=== PATIENT | female | born 1960 | race Caucasian/White ===

== ENCOUNTER 2018-10-05 10:32 | Inpatient (IN) ==
[2018-10-05 11:29] LABS: BASO# 0.05 X1000 (0.0-0.2); BASO% 0.3 % (0.0-0.8); EOS# 0.02 X1000 (0.0-0.7); EOS% 0.1 % (0.0-10.0); HEMATOCRIT 48.6 % (37.0-47.0); HEMOGLOBIN 15.7 g/dL (12.0-16.0); IMM GRAN# 0.04 X1000 (0.0-0.04); IMM GRAN% 0.3 % (0.0-0.5); LYMPH# 1.26 X1000 (1.2-3.4); LYMPH% 7.9 % (20.5-51.1); MCH 30.1 PG (27-31); MCHC 32.3 g/dL (33-37); MCV 93.1 FL (81-99); MONO# 0.85 X1000 (0.11-0.59); MONO% 5.3 % (1.7-9.3); MPV 12.2 FL (7.4-10.4); NEUT# 13.67 X1000 (1.4-6.5); NEUT% 86.1 % (42.2-75.2); PLT 229 X1000 (130-400); RBC 5.22 XMIL (4.2-5.4); RDW 15.4 % (11.5-14.5); WBC 15.89 X1000 (4.8-10.8)
[2018-10-05 11:58] LABS: ALB/GLOB RATIO 1.2; ALBUMIN 4.3 g/dL (3.5-5.0); CALCIUM 9.9 mg/dL (8.8-10.2); CREATININE 1.1 mg/dL (0.5-0.9); POTASSIUM 4.3 mmol/L (3.5-5.1); TOTAL BILIRUBIN 0.62 mg/dL (0.20-1.00); TOTAL PROTEIN 7.8 g/dL (6.3-8.3)
[2018-10-05] MEDS ORDERED: NS 1,000 ML IV ONE ×2 (12:45)
[2018-10-05] MEDS ORDERED: HUMULIN R IV ONE (12:45)
[2018-10-05 13:30] LABS: ALLEN TEST NO; BE -2.4 mmoll (-3.0-3.0); BLOOD TYPE ARTERIAL; HCO3-(ACT) 22.9 mmoll (20.0-26.0); METHB 1.4 % (0.0-1.5); O2(CT) 22.7 mL/dL (15.0-23.0); O2HB 93.7 % (95.0-99.0); PCO2(98.6) 30 mmHg (35-45); PO2(98.6) 106 mmHg (60-100); SAMPLE BLOOD; SAO2 98.7 % (95.0-100.0); THB 17.2 g/dL (11.5-17.4); pH(98.6) 7.44 (7.35-7.45)
[2018-10-05 13:31] LABS: MODALITY CANNULA
[2018-10-05 13:49] LABS: URINE SOURCE CLEAN CATCH
[2018-10-05 14:00] LABS: BILIRUBIN URINE NEGATIVE (NEGATIVE); BLOOD URINE NEGATIVE (NEGATIVE); COLOR YELLOW; GLUCOSE URINE >1000 mg/dL (NEGATIVE); KETONE URINE 40 mg/dL (NEGATIVE); LEUKOCYTES URINE NEGATIVE (NEGATIVE); NITRITE URINE NEGATIVE (NEGATIVE); PH URINE 5.5; PROTEIN URINE 50 mg/dL (NEGATIVE); TURBIDITY URINE CLEAR (CLEAR); UROBILINOGEN URINE NORMAL (NORMAL)
[2018-10-05 14:01] LABS: UR EPITHELIAL CELLS <10 /HPF (<10); URINE BACTERIA NEGATIVE /HPF; URINE RBC <10 /HPF (<10); URINE WBC <10 /HPF (<10)
--- NOTE | 2018-10-05 14:09 | Diag Imaging Result Doc PS360 ---
CHEST-PORTABLE - 10/05/2018 INDICATION: DKA COMPARISON: None FINDINGS: The lungs are normally expanded and clear. Heart size and mediastinal contours are normal. No pneumothorax or pleural effusion. There is a stable chest port in good position. IMPRESSION: Negative exam. Electronically signed by Parth Lorenz 10/05/2018 2:06 PM
--- NOTE | 2018-10-05 14:28 | Diag Imaging Result Doc PS360 ---
EXAM: CT ABDOMEN/PELVIS W/O CONTRAST INDICATION: flank terrie, renal insufficiency TECHNIQUE: COMPARISON: 09/26/2018 FINDINGS: There is linear scarring versus atelectasis in the right lung middle lobe. There is stable hepatic steatosis there has been a prior cholecystectomy. The spleen, pancreas, and adrenal glands are essentially unremarkable. No renal or ureteral stones are identified and there is no hydronephrosis. The pelvis is partially obscured by beam hardening artifact related to hip arthroplasty hardware. The visualized portion of the urinary bladder is grossly unremarkable. The reproductive tract is also partially obscured. The visualized portion is unremarkable. There are stable surgical changes associated with the sigmoid colon. There is a stable small hiatal hernia. The remainder of the GI tract is stable and essentially unremarkable. There are stable degenerative changes involving the spine. There is a stable prominent lipoma in the soft tissues overlying the left flank. IMPRESSION: Stable CT of the abdomen and pelvis without contrast. No renal or ureteral stones identified and no evidence of acute obstructive uropathy. Electronically signed by Tanner Nascimento 10/05/2018 2:26 PM
--- NOTE | 2018-10-05 14:28 | EKG Report ---
Test Performed on : 10/05/2018 1:31:50 PM Test Reason : sepsis Blood Pressure : / mmHG Vent. Rate : 100 BPM Atrial Rate : 100 BPM P-R Int : 156 ms QRS Dur : 076 ms QT Int : 352 ms P-R-T Axes : 080 023 022 degrees QTc Int : 454 ms Sinus rhythm. with premature atrial complexes. Septal infarct (cited on or before 21-JUL-2017) Abnormal ECG When compared with ECG of 22-JUN-2018 11:36, premature atrial complexes. are now present Unconfirmed Result
[2018-10-05] MEDS ORDERED: DUONEB (A & A) INH ONE (15:47)
[2018-10-05] MEDS ORDERED: FLAGYL 500 MG/NS 500 MG/100 ML IVPB IV ONE (15:49)
[2018-10-05] MEDS ORDERED: LEVAQUIN 750 MG/D5W 750 MG/150 ML IVPB IV ONE (15:49)
[2018-10-05] MEDS ORDERED: MORPHINE IV ONE (15:56)
[2018-10-05] MEDS ORDERED: ZOFRAN IV ONE (15:57)
--- NOTE | 2018-10-05 16:03 | PROVIDER DOCUMENTATION ---
This chart was entered by Olesya Bowles Scribe, acting as scribe for Brendon Kaur MD. HPI-Abdominal Pain/GI Problem - General Chief Complaint: Abdominal Pain Stated Complaint: abd pain, sob Time Seen by Provider: 10/05/18 13:05 Source: patient Allergies/Adverse Reactions: Patient Allergies Allergy/AdvReac Type Severity Reaction Status Date / Time No Known Drug Allergies Allergy Unknown Verified 09/26/18 11:30 Home Medications: Home Medication List Medication Instructions Recorded Confirmed Last Taken Type Amlodipine Besylate 10 mg PO DAILY 06/22/18 09/26/18 09/25/18 History Clonazepam 2 mg PO TID PRN 06/22/18 09/26/18 09/25/18 History Flecainide Acetate 50 tab PO BID 06/22/18 09/26/18 09/25/18 History Furosemide 1 tab PO BID 06/22/18 09/26/18 09/25/18 History Gabapentin 1 tab PO TID 06/22/18 09/26/18 09/25/18 History Lisinopril/Hydrochlorothiazide 1 tab PO DAILY 06/22/18 09/26/18 09/25/18 History [Lisinopril-Hctz 20-12.5 mg Tab] Metoprolol Succinate E.r. [Toprol 1 tab PO DAILY 06/22/18 09/26/18 09/25/18 History Xl] Mirtazapine 45 mg PO DAILY 06/22/18 09/26/18 09/25/18 History Mometasone/Formoterol [Dulera 200 1 puff INH BID 06/22/18 09/26/18 09/25/18 History Mcg/5 Mcg Inhaler] Montelukast Sodium [Singulair] 10 mg PO DAILY 06/22/18 09/26/18 09/25/18 History Omeprazole 40 mg PO DAILY 06/22/18 09/26/18 09/25/18 History Ondansetron [Zofran] 4 mg PO Q6H PRN PRN 06/22/18 09/26/18 09/25/18 History Sitagliptin Phosphate [Januvia] 1 tab PO DAILY 06/22/18 09/26/18 09/25/18 History Umeclidinium [place] [Incruse 1 puff INH DAILY 06/22/18 09/26/18 09/25/18 History Ellipta] Lansoprazole [Prevacid] 30 mg PO DAILY #30 capsule. 09/26/18 Unknown Rx Ondansetron [Zofran Odt] 8 mg PO BID PRN #6 tab.rapdis 09/26/18 Unknown Rx - History of Present Illness-ABD Nature of Presenting Problems: Patient is a 58 year old female who presents to the ED with suprapubic abdominal pain. Patient states diarrhea. Patient states symptoms have been present for 1.5 weeks. Patient denies nausea and vomiting. Patient states she is a diabetic but has not been taking her insulin because the insulin makes her itch. Abdominal Pain Onset Location: reports: suprapubic Pain Radiation: reports: no radiation Quality of Pain: reports: aching Severity in ED: reports: mild Onset/Duration: reports: other (1.5 weeks) Timing: reports: still present Activities at Onset: reports: light activity Modifying Factors: improves with: nothing Associated Symptoms: reports: diarrhea Bruising or Bleeding Gums?: No Similar Symptoms Previously?: Yes (present for 1.5 weeks) Recently seen or treated by another doctor?: No Review of Systems - Adult - REVIEW OF SYSTEMS - ADULT Constitutional: reports: no symptoms reported Eyes: reports: no symptoms reported Ears, Nose, Mouth & Throat: reports: no symptoms reported Cardiovascular: reports: no symptoms reported Respiratory: reports: no symptoms reported Gastrointestinal: reports: abdominal pain (suprapubic), diarrhea. denies: nausea, vomiting Genitourinary: reports: no symptoms reported Musculoskeletal: reports: no symptoms reported Integumentary: reports: no symptoms reported Neurological: reports: no symptoms reported Psychiatric: reports: no symptoms reported Endocrine: reports: no symptoms reported Hematologic/Lymphatic: reports: no symptoms reported Allergic/Immunologic: reports: no symptoms reported All Other Systems: Reviewed and Negative Past History - Adult - PAST MEDICAL HISTORY-ADULT Review of Records: reports: Nursing Assessment Review, Medications Reviewed, Social history reviewed & non-contributory. Major Childhood Illnesses: reports: denies history Cardiovascular: reports: A-Fib, arrhythmia, CHF, HTN, hyperlipidemia Respiratory: reports: COPD Gastrointestinal: reports: GERD Obstetrical/Gynecological: reports: denies history Genitourinary: reports: denies history Musculoskeletal: reports: denies history Neurological: reports: denies history Psychiatric: reports: bipolar, depression Endocrine/Immune: reports: Diabetes Other Conditions: reports: denies history - PRIOR SURGERIES/PROCEDURES Surgical/Procedure History: reports: cholecystectomy, , indwelling device (port a cath), joint replacement (bilateral total hip), back/neck - IMMUNIZATION STATUS Childhood Immunizations: See Nurse Assessment Flu Vaccine: See Nurse Assessment - FAMILY HISTORY Family History: reviewed, not pertinent - SOCIAL HISTORY Smoking: cigarettes, less than 1 pack/day Provider spent 3-5 mins advising pt. on dangers of tobacco.: Discussed manners to quit use, and f/u contacts for add'l counseling. Substance Use: alcohol Alcohol Use Frequency: occasionally Living Situation: friend Physical Exam-General - PHYSICAL EXAM-ADULT Initial Vital Signs Reviewed: Yes - CONSTITUTIONAL General Appearance: alert, mild distress, other (ill in appearance) - HEAD, EARS, NOSE, MOUTH & THROAT HENMT: other (dry mucous membranes) - RESPIRATORY Respiratory: increased rate, other (port to right side chest) - CARDIOVASCULAR Cardiovascular: normal peripheral pulses, tachycardia - GASTROINTESTINAL (ABDOMEN) Abdominal Exam: abnormal bowel sounds (hyper active), distended, other (large well healed mid line scar) - MUSCULOSKELETAL Back Exam: normal inspection Extremity: non-tender, normal inspection - SKIN Integumentary: normal color, normal turgor, warm/dry - NEUROLOGIC Neurologic: grossly normal - PSYCHIATRIC Psych/Mental Status: normal mood/affect, oriented x 3 Progress - PLAN OF CARE/RESULTS Progress/Plan/Lab Results: Vital Signs - 8 hr 10/05/18 11:05 Temperature 97.9 F Pulse Rate 102 H Respiratory Rate 20 Blood Pressure 166/76 O2 Sat by Pulse Oximetry 96 Laboratory Results - last 24 hr 10/05/18 10/05/18 11:06 11:06 WBC 15.89 H RBC 5.22 Hgb 15.7 Hct 48.6 H MCV 93.1 MCH 30.1 MCHC 32.3 L RDW Std Deviation 15.4 H Plt Count 229 MPV 12.2 H Immature Gran % (Auto) 0.3 Neut % (Auto) 86.1 H Lymph % (Auto) 7.9 L [place] % (Auto) 5.3 Eos % (Auto) 0.1 Baso % (Auto) 0.3 Immature Gran # (Auto) 0.04 Neut # (Auto) 13.67 H Lymph # (Auto) 1.26 [place] # (Auto) 0.85 H Eos # (Auto) 0.02 Baso # (Auto) 0.05 Sodium 133 L Potassium 4.3 Chloride 94 L Carbon Dioxide 17 L Anion Gap 22 BUN 15 Creatinine 1.1 H Estimated GFR/1.73 m2 51 BUN/Creatinine Ratio 14 Glucose 460 H* Calculated Osmolality 287 Calcium 9.9 Total Bilirubin 0.62 AST 17 ALT 22 Alkaline Phosphatase 140 H Total Protein 7.8 Albumin 4.3 Globulin 3.5 Albumin/Globulin Ratio 1.2 Amylase 26 Lipase 23 Orders Category Date Time Status Sparks Cath Insertion ORDERED Care 10/05/18 12:44 Active Nursing- Obtain EKG once Care 10/05/18 12:44 Active OK to use Port-A-Cath ORDERED Care 10/05/18 12:43 Active Saline Loc DIRECTED Care 10/05/18 11:10 Active CHEST-PORTABLE [RAD] Stat Exams 10/05/18 12:[address] HEAD W/O CONTRAST [CT] Stat Exams 10/05/18 12:46 Ordered ABG [RESP] Routine Lab 10/05/18 12:43 Ordered ACETONE SERUM [CHEM] Stat Lab 10/05/18 12:44 Uncollected AMYLASE [CHEM] Stat Lab 10/05/18 11:06 Completed BLOOD CULTURE [BLDCUL] Stat Lab 10/05/18 12:43 Ordered C DIFF TOXIN [STOOL] Stat Lab 10/05/18 12:43 Uncollected CBC WITH ELECTRONIC DIFF [HEME] Stat Lab 10/05/18 11:06 Completed COMPREHENSIVE METABOLIC PANEL [CHEM] Stat Lab 10/05/18 11:06 Completed LACTATE, PLASMA [CHEM] Stat Lab 10/05/18 12:43 Uncollected LIPASE [CHEM] Stat Lab 10/05/18 11:06 Completed OCCULT BLOOD SCREENING [STOOL] Stat Lab 10/05/18 12:43 Uncollected TROPONIN T Stat Lab 10/05/18 12:44 Uncollected URINALYSIS W/POSS RFLX CULT [URINALYSIS] Stat Lab 10/05/18 11:10 Uncollected 0.9% Sodium Chloride Inj [Ns] 1,000 ml Med 10/05/18 12:45 Active IV 999 mls/hr 0.9% Sodium Chloride Inj [Ns] 1,000 ml Med 10/05/18 12:45 Active IV 999 mls/hr Insulin Human Regular [Humulin R] Med 10/05/18 12:45 Discontinued 10 unit IV NOW ONE EKG [EKG] Stat Ther 10/05/18 12:44 Ordered Result Diagrams: 10/05/18 11:06 10/05/18 11:06 - REASSESSMENT Reassessment #1 Time Reassessed: 15:59 Status: unchanged (Given IV flagyl and levaquin for possible C. Diff. Given IVF and morphine/zofran for pain. Given duoneb x 3 for COPD and IV insulin for type 2 DM) - EKG 1 Time of EKG reading by physician:: 13:31 EKG Read and Signed by:: Brendon Kaur EKG Interpretation (*Must complete 3 of following elements*): Abnormal Rate: 100 Rhythm: sinus rhythm with premature atrial complexes [place]: normal CT Interval: normal Comments: septal infarct, age undetermined - XRAY 1 XRAY Study: Chest Impression: See EMR Report ( CHEST-PORTABLE - 10/05/2018 INDICATION: DKA COMPARISON: None FINDINGS: The lungs are normally expanded and clear. Heart size and mediastinal contours are normal. No pneumothorax or pleural effusion. There is a stable chest port in good position. IMPRESSION: Negative exam. Electronically signed by Parth Lorenz 10/05/2018 2:06 PM 10/05/18 1406 Interpreting Physician: Parth Lorenz MD Dictated Date/Time: 10/05/18 1405 cc: Brendon Kaur MD; None,PCP) - CT/MRI 1 CT Study: Abdomen, Pelvis Impression: See EMR Report (EXAM: CT ABDOMEN/PELVIS W/O CONTRAST INDICATION: flank terrie, renal insufficiency TECHNIQUE: COMPARISON: 09/26/2018 FINDINGS : There is linear scarring versus atelectasis in the right lung middle lobe. There is stable hepatic steatosis there has been a prior cholecystectomy. The spleen, pancreas, and adrenal glands are essentially unremarkable. No renal or ureteral stones are identified and there is no hydronephrosis. The pelvis is partially obscured by beam hardening artifact related to hip arthroplasty hardware. The visualized portion of the urinary bladder is grossly unremarkable. The reproductive tract is also partially obscured. The visualized portion is unremarkable. There are stable surgical changes associated with the sigmoid colon. There is a stable small hiatal hernia. The remainder of the GI tract is stable and essentially unremarkable. There are stable degenerative changes involving the spine. There is a stable prominent lipoma in the soft tissues overlying the left flank. IMPRESSION: Stable CT of the abdomen and pelvis without contrast. No renal or ureteral stones identified and no evidence of acute obstructive uropathy. Electronically signed by Tanner Nascimento 10/05/2018 2:26 PM 10/05/18 1426 Interpreting Physician: Tanner Nascimento MD Dictated Date/Time: 10/05/18 1419 cc: Brendon Kaur MD; None,PCP) - CONSULTS/PCP/HOSPITALIST Notification #1 *Consult/PCP/Hospitalist*: mD Joshua Time Discussed: 16:00 Consult Disposition: Will see in ED Departure - Departure Date of Disposition Decision: 10/05/18 Time of Disposition Decision: 16:00 DIAGNOSIS: COPD with exacerbation, Type 2 diabetes mellitus with hyperglycemia, with long- term current use of insulin, Enteritis, Tobacco use disorder Disposition: ADMITTED INPATIENT 09 Certified Medical Emergency: Emergent Condition: Fair Referrals and Follow-Ups: None,PCP [Primary Care Provider] - - Critical Care Note This patient required my direct & personal management of CC.: No Attestation - Physician/ KELY Attestation Patient care was provided by Advanced Practice Provider:: No The physician spent face to face time with patient:: Yes Advanced Practice Provider documentation review:: Supervising physician onsite and consulted in the evaluation and care of this patient. The physician did have a face to face encounter with the patient. This chart was documented by the indicated scribe, (Olesya Bowles Scribe) and accurately reflects the services I performed and decisions made by me, Brendon Kaur MD, as attested by the provider's signature.
[2018-10-05] MEDS ORDERED: LOVENOX SUBQ SCH (16:56)
[2018-10-05] MEDS ORDERED: DUONEB (A & A) INH PRN (16:56)
[2018-10-05] MEDS: NS 1,000 ML IV SCH (18:34)
--- NOTE | 2018-10-05 18:38 | HISTORY AND PHYSICAL ---
CHIEF COMPLAINT: Chronic abdominal pain and diarrhea. HISTORY OF PRESENT ILLNESS: The patient with numerous comorbidities including COPD with chronic hypoxic respiratory failure on 2 L at home, CKD 3, diabetes mellitus, noncompliance, paroxysmal atrial fibrillation, hypertension, tobacco abuse, GERD, and psychiatric issues. She presents complaining of lower abdominal pain and diarrhea. She states that these have been going on since shortly after her previous discharge. When patient asked why she came in today, she repeatedly says that "I am just tired of being sick." She had not noted anything that makes her symptoms better or worse. Her pain is primarily bilateral lower abdomen. It is crampy. She has not noted any fever or chills at home. Her breathing is essentially baseline. She no longer smokes cigarettes but continues to vape. She stopped her insulin quite sometime ago but is vague about exactly how long ago. When asked why she quit, she says that giving herself shots makes her itch. On evaluation in the ED, she was minimally tachycardic, hyperglycemic, with a bit of leukocytosis, hyperglycemia, and mild dehydration. Suspect viral gastroenteritis versus gastroparesis with dumping syndrome. Less likely Clostridium difficile. We will obtain stool studies to rule out serious infection. We will hydrate aggressively and treat her hyperglycemia. We will observe overnight, but if Clostridium difficile is negative could likely go home tomorrow and follow up with her PCP for her chronic issues. REVIEW OF SYSTEMS: Twelve-point review of systems negative except as per HPI. ALLERGIES: No known drug allergies. PAST MEDICAL HISTORY: COPD, chronic hypoxic respiratory failure, CKD 3, diabetes mellitus, atrial fibrillation, hypertension, tobacco abuse, GERD, and chronic abdominal pain. PAST SURGICAL HISTORY: Hip surgery, spine surgery, port placement, shoulder surgery, , cholecystectomy. SOCIAL HISTORY: Patient is a former cigarette smoker, now vaping. Denies alcohol or illicit drug use although there has been some question in the record of these in the past. FAMILY HISTORY: Father in his 40s from infection and gangrene. Mother alive with history of Parkinson. LABORATORY DATA: WBC 15.8, hemoglobin 15.7, hematocrit 48.6, platelets 229. ABG with pH 744, pCO2 of 30, PO2 of 106, O2 saturations 98% on 2 L by nasal cannula. Sodium 133, potassium 4.3, bicarb 17, BUN 15, creatinine 1.1, glucose 460, AST 17, ALT 22, alkaline phosphatase 140, troponin negative. Total protein 7.8, albumin 4.3, lactate 1.5. Urinalysis with mild proteinuria, marked glucosuria, otherwise negative. Serum acetone negative. IMAGING: Chest x-ray negative. CT abdomen and pelvis with no acute process. PHYSICAL EXAMINATION: VITAL SIGNS: T-max 97.9 degrees, pulse 102, respirations 25, O2 saturations 99% on 2 L by nasal cannula. GENERAL: No acute distress. HEENT: Dry mucous membranes. No cervical adenopathy. Normocephalic, atraumatic. CARDIOVASCULAR: Slightly irregular, minimally tachycardic. No murmurs noted. PULMONARY: Slightly decreased air entry throughout, but no wheezing. No increased work of breathing. No accessory muscle use. ABDOMEN: Soft. No tenderness, guarding, or rebound tenderness noted. Bowel sounds positive. Nondistended. EXTREMITIES: Peripheral pulses decreased but present. No clubbing or cyanosis. NEUROLOGIC: Cranial nerves 2 through 12 grossly intact. No focal deficits identified. PSYCHIATRIC: Odd effect. Awake, alert, and oriented x3. SKIN: No new rashes or lesions identified. ASSESSMENT AND PLAN: 1. Mild dehydration, viral gastroenteritis versus gastroparesis and dumping syndrome: We will obtain stool studies to rule out Clostridium difficile. Given Flagyl in ER which will continue until Clostridium difficile is ruled out. Given the benign abdominal exam, lack of fever, lack of diarrhea noted since arrival, and chronicity of symptoms, suspicion for Clostridium difficile relatively low. We will give IV fluids and symptomatic treatment. Given the likelihood of gastroparesis, we will keep narcotics to a minimum. CT abdomen completely benign. Lab work largely unremarkable aside from leukocytosis as above. 2. Chronic obstructive pulmonary disease with chronic hypoxic respiratory failure. Patient is saturating well on her home 2 L. ABG with no increase in CO2. No wheezing on exam. We will give DuoNebs p.r.n. and continue her home medications. No signs of exacerbation at this time. 3. Chronic kidney disease 3. Creatinine 1.1, which is baseline. We will hydrate as above and monitor. 4. Diabetes mellitus with hyperglycemia. Patient noncompliant with home insulin. Sugar [address] on admission. We will place on sliding scale insulin and monitor. The importance of compliance stressed to patient. 5. Atrial fibrillation. The patient had irregular but rate control on admission. Initial pulse rate 102, repeat 63. We will continue home medications. 6. Hypertension. We will hold home diuretics in the setting of dehydration but likely restart in the morning if blood pressure is elevated. 7. Tobacco abuse. Patient educated on cessation. No longer smoking cigarettes, but still smoking vape. 8. Gastroesophageal reflux disease. Continue PPI. 9. Psychiatric: We will continue patient's home psychiatric medications. 10. Deep vein thrombosis prophylaxis. Lovenox. 11. Disposition. We will observe overnight, but if Clostridium difficile is negative then patient can likely be discharged to follow up with her PCP to discuss her chronic abdominal pain and diarrhea. May consider Rosal[place].
[2018-10-05] MEDS: TAMBOCOR PO SCH (22:02)
[2018-10-05] MEDS: KLONOPIN PO PRN (22:03)
[2018-10-05] MEDS: NORCO-7.5 PO PRN (22:03)
[2018-10-05] MEDS: HUMALOG SUBQ SCH (22:10)
[2018-10-05] MEDS: DULERA 200 MCG/5 MCG INHALER INH SCH (22:57)
[2018-10-06] MEDS: FLAGYL PO SCH ×3 (01:28→16:53)
[2018-10-06] MEDS: NS 1,000 ML IV SCH ×3 (04:50→15:48)
[2018-10-06] MEDS: HUMALOG SUBQ SCH ×4 (06:09→22:16)
[2018-10-06] MEDS: PRILOSEC PO SCH (06:10)
--- NOTE | 2018-10-06 06:48 | Diag Imaging Result Doc PS360 ---
EXAM: CHEST-PORTABLE HISTORY: cough TECHNIQUE: Portable chest single view COMPARISON: 10/05/2018 FINDINGS: The lungs are well expanded. The heart is not enlarged. The vessels are not distended. No change in the right jugular portacatheter. No pneumothorax. There are no infiltrates. No effusion identified. IMPRESSION: Stable chest. Electronically signed by Brooks Gallo 10/06/2018 6:46 AM
[2018-10-06 07:53] LABS: BASO# 0.03 X1000 (0.0-0.2); BASO% 0.3 % (0.0-0.8); EOS# 0.08 X1000 (0.0-0.7); EOS% 0.7 % (0.0-10.0); HEMATOCRIT 40.5 % (37.0-47.0); HEMOGLOBIN 12.9 g/dL (12.0-16.0); IMM GRAN# 0.02 X1000 (0.0-0.04); IMM GRAN% 0.2 % (0.0-0.5); LYMPH# 1.32 X1000 (1.2-3.4); LYMPH% 12.3 % (20.5-51.1); MCH 30.2 PG (27-31); MCHC 31.9 g/dL (33-37); MCV 94.8 FL (81-99); MONO# 0.75 X1000 (0.11-0.59); MPV 12.3 FL (7.4-10.4); NEUT# 8.53 X1000 (1.4-6.5); NEUT% 79.5 % (42.2-75.2); PLT 186 X1000 (130-400); RBC 4.27 XMIL (4.2-5.4); RDW 15.1 % (11.5-14.5); WBC 10.73 X1000 (4.8-10.8)
[2018-10-06] MEDS: NORCO-7.5 PO PRN ×3 (08:11→23:27)
[2018-10-06] MEDS: SINGULAIR PO SCH (08:11)
[2018-10-06 08:12] LABS: AGAP 15; BUN 9 mg/dL (8-22); CALCIUM 8.1 mg/dL (8.8-10.2); CHLORIDE 105 mmol/L (98-107); COSMO 285; CREATININE 0.7 mg/dL (0.5-0.9); ESTIMATED GFR > 60; GLUCOSE 223 mg/dL (70-104); POTASSIUM 3.4 mmol/L (3.5-5.1); SODIUM 140 mmol/L (136-145); TCO2 20 mmol/L (25-35)
[2018-10-06] MEDS: ZOFRAN IV PRN ×2 (08:13→15:10)
[2018-10-06] MEDS: REMERON PO SCH (08:15)
[2018-10-06] MEDS: TOPROL XL PO SCH (08:25)
[2018-10-06] MEDS: TAMBOCOR PO SCH ×2 (08:27→22:15)
[2018-10-06] MEDS: DULERA 200 MCG/5 MCG INHALER INH SCH (09:44)
--- NOTE | 2018-10-06 13:50 | PROGRESS NOTE ---
DATE: 10/06/2018 SUBJECTIVE: The patient is resting comfortably in bed. She is not in any obvious distress. OBJECTIVE: Vital signs: Temperature 97.7 degrees, pulse is 89, respiratory rate 18, blood pressure is 142/70, oxygen saturation is 97%. HEENT: Atraumatic, normocephalic. Cardiovascular: S1, S2. Respiratory: Has evidence of good entry bilaterally. Abdomen: Soft, nontender. No masses felt. Extremities: No evidence of edema. Central nervous system: No obvious focal deficit noted. LABS: WBC is 10.73, hematocrit is 40.5 with a platelet count of 186,000. Sodium is 140, potassium 3.4, chloride is 105, bicarb 20, BUN is 9, creatinine 0.7. ASSESSMENT AND PLAN: 1. Probable gastroenteritis. Plan will be to treat the patient symptomatically. Maintain patient on intravenous fluids and continue to follow up on patient's clinical progression. 2. Chronic obstructive pulmonary disease. Maintain patient on nebulized bronchodilators as needed. 3. Chronic kidney disease. Continue intravenous hydration. Follow up on renal function. Avoid nephrotoxic agent. 4. Diabetes mellitus. Continue blood sugar monitor as well as Lantus. Check a hemoglobin A1c level. 5. Atrial fibrillation. Heart rate is controlled. Continue flecainide as well as metoprolol. 6. Hypertension. Continue current antihypertensive regimen. 7. Tobacco use history. We recommend nicotine patch at this time. 8. Gastroesophageal reflux disease. Continue proton pump inhibitor. 9. Deep vein thrombosis prophylaxis. Will recommend placing patient on sequential compression devices. cc: Rey Hawley MD
[2018-10-06 14:01] LABS: HEMOGLOBIN A1C 9.8 % (4.8-6.0)
[2018-10-06] MEDS ORDERED: NICODERM PATCH TD PRN (14:02)
[2018-10-06] MEDS: KLONOPIN PO PRN ×2 (17:12→22:13)
[2018-10-06] MEDS ORDERED: TUSSIONEX LIQUID PO ONE (22:56)
[2018-10-07] MEDS: NORCO-7.5 PO PRN ×2 (04:43→08:52)
[2018-10-07] MEDS: NS 1,000 ML IV SCH (05:44)
[2018-10-07] MEDS: PRILOSEC PO SCH (06:27)
[2018-10-07] MEDS: FLAGYL PO SCH (06:27)
[2018-10-07 08:08] VITALS: BP 174/80
[2018-10-07] MEDS: DULERA 200 MCG/5 MCG INHALER INH SCH (08:28)
[2018-10-07] MEDS: HUMALOG SUBQ SCH (08:48)
[2018-10-07] MEDS: ZOFRAN IV PRN (08:49)
[2018-10-07] MEDS: REMERON PO SCH (08:49)
[2018-10-07] MEDS: KLONOPIN PO PRN (08:51)
[2018-10-07] MEDS: SINGULAIR PO SCH (08:51)
[2018-10-07] MEDS: TAMBOCOR PO SCH (08:54)
[2018-10-07] MEDS: TOPROL XL PO SCH (08:54)
[2018-10-07] MEDS ORDERED: KLOR-CON PO SCH (09:00)
--- NOTE | 2018-10-08 05:45 | DISCHARGE SUMMARY ---
ADMISSION DATE: 10/05/2018 DISCHARGE DATE: 10/07/2018 IMAGING: Initial chest x-ray with no acute process. CT abdomen and pelvis with no acute process. Repeat chest x-ray with no acute process. LABORATORY: Initial WBC 15.8, repeat 10.7. ABG with pH 7.4, pCO2 30, PO2 106 on 2 L by nasal cannula in which the patient reported taking at home. This shows sodium 133, repeat 140, and potassium 4.3. Initial creatinine 1.1. Repeat creatinine of 0.7. Initial glucose 460. Troponin negative. Urinalysis unremarkable aside from glucose and slight proteinuria. Acetone was negative. Hemoglobin A1C 9.8. DISCHARGE DIAGNOSES: 1. Likely viral gastroenteritis. 2. Possible gastroparesis. 3. COPD. 4. RENEE versus CKD 5. Diabetes mellitus. 6. Atrial fibrillation. 7. Hypertension. 8. Tobacco abuse. 9. GERD. 10. Medication noncompliance. HOSPITAL COURSE: The patient presented initially with complaints of largely acute on chronic diarrhea and lower abdominal pain. He states that it has been going on for at least a month, but has been worse over the last day or 2 prior to admission. She did endorse some early satiety and nausea but no vomiting. Denied any sick contacts. She had stopped taking her insulin when asked when I stated that giving herself shots made her itch. Initial workup in the ER was largely unremarkable. She did have a little bit of white count but no fever. Imaging of the chest and abdomen were unremarkable. She did have pretty significant hyperglycemia, but no evidence of DKA. Her creatinine was mildly elevated, which was felt to be chronic but did improve overnight with the IV fluids from 1.1 to 0.7. Stool studies were negative for C. Difficile. The patient was treated symptomatically with IV fluids, insulin and nausea control. She improved spontaneously over the course of her hospitalization. She is still having some mild nausea on discharge, but her occasional loose stools after eating, but was tolerating diet well and felt this was back to her baseline. I suspect the patient has undiagnosed gastroparesis, and recommend she follow up with GI for further evaluation. DISCHARGE VITALS: Temperature 97.5 degrees, heart rate 87, respirations 18, blood pressure 134/67, 02 sats 97 percent on room air. DISCHARGE EXAMINATION: General: No distress. Vitals: As above. HEENT: Normocephalic, atraumatic. Moist mucous membranes. No cervical adenopathy. Cardiovascular: Irregular but normal rhythm. No murmurs noted. Pulmonary: Slightly decreased air entry throughout, but otherwise clear to auscultation. No increased work up breathing. No accessory muscle use. No rales or rhonchi or wheezing. Abdomen: Soft, nontender. Nondistended. Bowel sounds positive. Extremities: Peripheral pulses are decreased but present. No clubbing or cyanosis. Neurologic: Cranial nerves grossly intact. No focal deficits identified. Psychiatric: Normal mood and affect. Awake, alert and oriented x3. Skin: No new rashes or lesions identified. DISCHARGE DIET: Diabetic diet. DISCHARGE MEDICATIONS: 1. Norvasc 10 mg p.o. daily. 2. Clonazepam 2 mg p.o. t.i.d. p.r.n. as at home. 3. Flecainide 50 mg p.o. b.i.d. 4. Lisinopril/hydrochlorothiazide 20 - 12.5 daily. 5. Toprol-XL 25 mg 1 tab p.o. daily. 6. Mirtazapine 45 mg p.o. daily. 7. Dulera 1 puff inhaled b.i.d. 8. Singulair 10 mg p.o. daily. 9. Omeprazole 40 mg p.o. every day. 10. Januvia 100 mg p.o. daily. 11. [*] Ellipta 1 puff inhaled daily. 12. Gabapentin 800 mg p.o. t.i.d. 13. Prevacid 30 mg p.o. daily. 14. Metformin 500 p.o. b.i.d. 15. Zofran 4 mg tablet q.6 hours p.r.n. 16. [*]30 mL p.o. daily. 17. Phenergan suppository 25 mg per rectum q.6 hours p.r.n. if Zofran ineffective. FOLLOWUP AND PLAN: The patient is to discharge home to follow up with PCP and GI for further discussion of her chronic nausea and intermittent diarrhea. Further evaluation for possible gastroparesis. Advised patient to take 2 smaller more frequent meals. Medications given to help control symptoms. Advised the patient on the importance of compliance.
== END 2018-10-07 13:57 | disposition home health service (06) | DRG 683 ==
LOC: EDIPHOLD 10:32 → ED 10:32 → SUATTDRO 17:42 → OBSVTOIN 17:42 → 3N 18:41
PROVIDERS: ATTEND Internal Medicine
CPT/HCPCS: 51702; 71010; 71045; 74176; 80048; 80053; 81001; 82009; 82150; 82270; 82805; 82948; 83036; 83605; 83690; 84484; 85025; 87040; 87324; 93005; 94640; 94760; 94761; 96365; 96372; 96375; 99285; A9270; J1650; J1815; J1956; J2270; J2405; J7030; S0030; XXXXX

== ENCOUNTER 2018-11-14 18:27 | Inpatient (IN) ==
[2018-11-14] MEDS ORDERED: NS 1,000 ML IV ONE (19:25)
[2018-11-14] MEDS ORDERED: MORPHINE IV ONE (19:25)
[2018-11-14] MEDS ORDERED: ZOFRAN IV ONE (19:25)
[2018-11-14 20:32] LABS: BASO# 0.06 X1000 (0.0-0.2); BASO% 0.6 % (0.0-0.8); EOS# 0.05 X1000 (0.0-0.7); EOS% 0.5 % (0.0-10.0); HEMOGLOBIN 14.6 g/dL (12.0-16.0); IMM GRAN# 0.02 X1000 (0.0-0.04); IMM GRAN% 0.2 % (0.0-0.5); LYMPH# 2.02 X1000 (1.2-3.4); LYMPH% 20.3 % (20.5-51.1); MCHC 32.4 g/dL (33-37); MCV 92.4 FL (81-99); MONO# 0.89 X1000 (0.11-0.59); MONO% 8.9 % (1.7-9.3); MPV 10.9 FL (7.4-10.4); NEUT# 6.92 X1000 (1.4-6.5); NEUT% 69.5 % (42.2-75.2); PLT 262 X1000 (130-400); RBC 4.87 XMIL (4.2-5.4); RDW 15.7 % (11.5-14.5); WBC 9.96 X1000 (4.8-10.8)
[2018-11-14 20:39] LABS: INR 0.89; PROTIME 12.8 Seconds (11.0-16.0)
[2018-11-14 20:40] LABS: PTT 25.9 Seconds (22.3-41.8)
[2018-11-14 21:01] LABS: AGAP 15; ALB/GLOB RATIO 1.3; ALBUMIN 4.1 g/dL (3.5-5.0); ALKALINE PHOSPHATASE 120 U/L (32-104); BUN 9 mg/dL (8-22); CHLORIDE 99 mmol/L (98-107); COSMO 277; CREATININE 0.9 mg/dL (0.5-0.9); ESTIMATED GFR > 60; GLUCOSE 187 mg/dL (70-104); GOT 17 U/L (10-30); GPT 14 U/L (10-36); LIPASE 21 U/L (13-60); MAGNESIUM 1.5 mg/dL (1.5-2.7); POTASSIUM 4.2 mmol/L (3.5-5.1); SODIUM 137 mmol/L (136-145); TCO2 23 mmol/L (25-35); TOTAL PROTEIN 7.2 g/dL (6.3-8.3)
--- NOTE | 2018-11-14 21:46 | Diag Imaging Result Doc PS360 ---
EXAM: CT ABD/PELVIS W/IV CONT ONLY INDICATION: abdominal pain TECHNIQUE: This exam was performed using automated exposure control, adjustment of mA or kV according to patient size, and/or use of iterative reconstruction technique. COMPARISON: 10/05/2018 FINDINGS: There has been a prior cholecystectomy. The liver is somewhat prominent and there is mild diffuse hepatic steatosis. The the spleen, pancreas, and adrenal glands are unremarkable. There is a small left renal cyst. The kidneys are essentially unremarkable, otherwise. The pelvis is partially obscured from beam hardening artifact related to bilateral hip arthroplasty. The visualized portion of the urinary bladder is unremarkable. The reproductive tract is unremarkable as imaged. The appendix is normal. There is a staple line associated with the distal sigmoid colon. There is very mild diverticulosis coli with no evidence of diverticulitis. There are a few loops of the proximal jejunum that are mild to moderately distended with air-fluid levels. It is nonspecific. There is nothing that would necessarily indicate obstruction. This probably represents mild ileus. The remainder of the GI tract is grossly unremarkable. No free abdominal gas, free fluid, or focal inflammatory changes are appreciated. There is degenerative arthropathy throughout the spine. There is moderate aortoiliac atherosclerotic calcification. IMPRESSION: 1.A few mild to moderately distended loops of the proximal jejunum that is nonspecific but probably represents ileus, which can be due to mild enteritis. 2.Hepatic steatosis. 3.Other incidental/nonacute findings detailed above. Electronically signed by Tanenr Nascimento 11/14/2018 9:44 PM
[2018-11-14 22:09] LABS: URINE SOURCE CLEAN CATCH
[2018-11-14 22:17] LABS: BILIRUBIN URINE NEGATIVE (NEGATIVE); BLOOD URINE NEGATIVE (NEGATIVE); COLOR YELLOW; GLUCOSE URINE NEGATIVE (NEGATIVE); KETONE URINE 10 mg/dL (NEGATIVE); LEUKOCYTES URINE TRACE (NEGATIVE); NITRITE URINE NEGATIVE (NEGATIVE); PH URINE 6.5; PROTEIN URINE 30 mg/dL (NEGATIVE); SP GRAVITY URINE 1.033; TURBIDITY URINE CLEAR (CLEAR); UR EPITHELIAL CELLS <10 /HPF (<10); URINE BACTERIA NEGATIVE /HPF; URINE RBC <10 /HPF (<10); URINE WBC <10 /HPF (<10); UROBILINOGEN URINE NORMAL (NORMAL)
[2018-11-15] MEDS ORDERED: COMPAZINE IV ONE (01:24)
[2018-11-15] MEDS ORDERED: G.I. COCKTAIL PO ONE (01:25)
--- NOTE | 2018-11-15 01:35 | PROVIDER DOCUMENTATION ---
This chart was entered by Renu Tracey Scribe, acting as scribe for Alex Tena MD. HPI-Abdominal Pain/GI Problem - General Chief Complaint: Abdominal Pain Stated Complaint: abd pain Time Seen by Provider: 11/14/18 18:48 Source: patient Allergies/Adverse Reactions: Patient Allergies Allergy/AdvReac Type Severity Reaction Status Date / Time No Known Drug Allergies Allergy Unknown Verified 09/26/18 11:30 Home Medications: Home Medication List Medication Instructions Recorded Confirmed Last Taken Type Amlodipine Besylate 10 mg PO DAILY 06/22/18 09/26/18 09/25/18 History Clonazepam 2 mg PO TID PRN 06/22/18 09/26/18 09/25/18 History Flecainide Acetate 50 tab PO BID 06/22/18 09/26/18 09/25/18 History Lisinopril/Hydrochlorothiazide 1 tab PO DAILY 06/22/18 09/26/18 09/25/18 History [Lisinopril-Hctz 20-12.5 mg Tab] Metoprolol Succinate E.r. [Toprol 1 tab PO DAILY 06/22/18 09/26/18 09/25/18 History Xl] Mirtazapine 45 mg PO DAILY 06/22/18 09/26/18 09/25/18 History Mometasone/Formoterol [Dulera 200 1 puff INH BID 06/22/18 09/26/18 09/25/18 History Mcg/5 Mcg Inhaler] Montelukast Sodium [Singulair] 10 mg PO DAILY 06/22/18 09/26/18 09/25/18 History Omeprazole 40 mg PO DAILY 06/22/18 09/26/18 09/25/18 History Sitagliptin Phosphate [Januvia] 1 tab PO DAILY 06/22/18 09/26/18 09/25/18 History Umeclidinium [place] [Incruse 1 puff INH DAILY 06/22/18 09/26/18 09/25/18 History Ellipta] Lansoprazole [Prevacid] 30 mg PO DAILY #30 capsule. 09/26/18 Unknown Rx Gabapentin 1 tab PO TID #90 tab 10/07/18 Unknown Rx Metformin [Glucophage] 500 mg PO BID CC #60 tab 02/02/19 Unknown Rx Ondansetron [Zofran] 4 mg PO Q6H PRN PRN #30 tab 10/07/18 Unknown Rx Pioglitazone HCl [Actos] 30 mg PO DAILY #30 tab 10/07/18 Unknown Rx Promethazine [Phenergan] 25 mg [place] Q6H PRN PRN #21 supp 10/07/18 Unknown Rx - History of Present Illness-ABD Nature of Presenting Problems: pt is a 58 yr old female presenting with complaint of abdominal pain onset last night, pt admits nausea and diarrhea, no fever or vomiting, pt hx of multiple abdominal surgeries, no other complaints Abdominal Pain Onset Location: reports: generalized abdomen Pain Radiation: reports: no radiation Quality of Pain: reports: aching, cramping Severity in ED: reports: moderate Onset/Duration: reports: last night Timing: reports: still present Activities at Onset: reports: light activity Exposure to sick contacts?: No Modifying Factors: improves with: nothing Associated Symptoms: reports: diarrhea, nausea. denies: constipation, fever/chills, genitourinary problems, vomiting Last BM: this evening Dark Stools Present?: reports: none noticed Rectal Pain: reports: none Emesis Description: reports: none Bruising or Bleeding Gums?: No Similar Symptoms Previously?: Yes Recently seen or treated by another doctor?: Yes Review of Systems - Adult - REVIEW OF SYSTEMS - ADULT Constitutional: denies: chills, fever Eyes: reports: no symptoms reported Ears, Nose, Mouth & Throat: reports: no symptoms reported Cardiovascular: denies: chest pain, palpitations, syncope Respiratory: denies: cough, shortness of breath Gastrointestinal: reports: abdominal pain, diarrhea, nausea. denies: constipati on, vomiting Genitourinary: denies: dysuria, frequency, flank pain Musculoskeletal: reports: no symptoms reported Integumentary: reports: no symptoms reported Neurological: denies: dizziness/vertigo, headache/migraines Psychiatric: reports: no symptoms reported Endocrine: reports: no symptoms reported Hematologic/Lymphatic: reports: no symptoms reported Allergic/Immunologic: reports: no symptoms reported All Other Systems: Reviewed and Negative Past History - Adult - PAST MEDICAL HISTORY-ADULT Review of Records: reports: Old Records Reviewed, Nursing Assessment Review, Medications Reviewed, Social history reviewed & non-contributory. Major Childhood Illnesses: reports: denies history Cardiovascular: reports: A-Fib, arrhythmia, CHF, HTN, hyperlipidemia Respiratory: reports: COPD Gastrointestinal: reports: GERD Obstetrical/Gynecological: reports: denies history Genitourinary: reports: denies history Musculoskeletal: reports: denies history Neurological: reports: denies history Psychiatric: reports: bipolar, depression Endocrine/Immune: reports: Diabetes Other Conditions: reports: denies history - PRIOR SURGERIES/PROCEDURES Surgical/Procedure History: reports: cholecystectomy, , indwelling device (port a cath), joint replacement (bilateral total hip), back/neck - IMMUNIZATION STATUS Childhood Immunizations: See Nurse Assessment Flu Vaccine: See Nurse Assessment - FAMILY HISTORY Family History: reviewed, not pertinent - SOCIAL HISTORY Smoking: quit greater than 1 year Substance Use: alcohol Alcohol Use Frequency: occasionally Living Situation: family Physical Exam-General - PHYSICAL EXAM-ADULT Initial Vital Signs Reviewed: Yes - CONSTITUTIONAL General Appearance: alert, severe distress, obese, other (tearful) - EYES Eyes: PERRL/EOMI - HEAD, EARS, NOSE, MOUTH & THROAT HENMT: normocephalic/atraumatic, moist mucous membranes - NECK Neck: non-tender, full range of motion, supple, normal inspection - RESPIRATORY Respiratory: chest non-tender, lungs clear, normal breath sounds, no pleuratic chest pain, no respiratory distress, no accessory muscle use - CARDIOVASCULAR Cardiovascular: normal peripheral pulses, regular rate, rhythm, no edema - GASTROINTESTINAL (ABDOMEN) Abdominal Exam: normal bowel sounds, soft, guarding, tenderness (mid abdominal tenderness) - LYMPHATIC Lymphatic: no adenopathy - MUSCULOSKELETAL Back Exam: normal inspection, no CVA tenderness, no vertebral tenderness Extremity: normal range of motion, non-tender, normal gait, normal inspection - SKIN Integumentary: normal color, normal turgor, warm/dry - NEUROLOGIC Neurologic: grossly normal, no motor/sensory deficits - PSYCHIATRIC Psych/Mental Status: anxious, tearful Progress - PLAN OF CARE/RESULTS Progress/Plan/Lab Results: Vital Signs - 8 hr 11/14/18 19:08 11/14/18 20:34 11/14/18 20:40 Pulse Rate 95 H Respiratory Rate 18 Blood Pressure 176/152 O2 Sat by Pulse Oximetry 98 93 L 95 Laboratory Results - last 24 hr 11/14/18 11/14/18 20:18 20:18 WBC 9.96 RBC 4.87 Hgb 14.6 Hct 45.0 MCV 92.4 MCH 30.0 MCHC 32.4 L RDW Std Deviation 15.7 H Plt Count 262 MPV 10.9 H Immature Gran % (Auto) 0.2 Neut % (Auto) 69.5 Lymph % (Auto) 20.3 L [place] % (Auto) 8.9 Eos % (Auto) 0.5 Baso % (Auto) 0.6 Immature Gran # (Auto) 0.02 Neut # (Auto) 6.92 H Lymph # (Auto) 2.02 [place] # (Auto) 0.89 H Eos # (Auto) 0.05 Baso # (Auto) 0.06 PT 12.8 INR 0.89 PTT (Actin FS) 25.9 Orders Category Date Time Status CT ABD/PELVIS W/IV CONT ONLY [CT] Stat Exams 11/14/18 19:25 Ordered CBC WITH ELECTRONIC DIFF [HEME] Stat Lab 11/14/18 20:18 Completed COMPREHENSIVE METABOLIC PANEL [CHEM] Stat Lab 11/14/18 20:18 Received LACTATE, PLASMA [CHEM] Stat Lab 11/14/18 20:18 Received LIPASE [CHEM] Stat Lab 11/14/18 20:18 Received MAGNESIUM [CHEM] Stat Lab 11/14/18 20:18 Received PT [PROTIME WITH INR] [COAG] Stat Lab 11/14/18 20:18 Completed PTT [COAG] Stat Lab 11/14/18 20:18 Completed URINALYSIS W/POSS RFLX CULT [URINALYSIS] Stat Lab 11/14/18 19:24 Uncollected 0.9% Sodium Chloride Inj [Ns] 1,000 ml Med 11/14/18 19:25 Discontinued IV 999 mls/hr Morphine Med 11/14/18 19:25 Discontinued 4 mg IV NOW ONE Ondansetron [Zofran] Med 11/14/18 19:25 Discontinued 4 mg IV NOW ONE EKG [EKG] Stat Ther 11/14/18 19:23 Ordered Result Diagrams: 11/14/18 20:18 11/14/18 20:18 - REASSESSMENT Reassessment #1 Time Reassessed: 23:45 Status: unchanged (patient still crying and complaining of abdominal pain despite initial morphine) - EKG 1 Time of EKG reading by physician:: 20:35 EKG Read and Signed by:: Alex Tena EKG Interpretation (*Must complete 3 of following elements*): Abnormal (anteroir infarct-age undertemined) Rate: 98 Rhythm: nsr [place]: normal QRS: normal [place] Interval: normal ST Wave: normal - CT/MRI 1 CT Study: Abdomen Impression: Abnormal (EXAM: CT ABD/PELVIS W/IV CONT ONLY INDICATION: abdominal pain TECHNIQUE: This exam was performed using automated exposure control, adjustment of mA or kV according to patient size, and/or use of iterative reconstruction technique. COMPARISON: 10/05/2018 FINDINGS: There has been a prior cholecystectomy. The liver is somewhat prominent and there is mild diffuse hepatic steatosis. The the spleen, pancreas, and adrenal glands are unremarkable. There is a small left renal cyst. The kidneys are essentially unremarkable, otherwise. The pelvis is partially obscured from beam hardening artifact related to bilateral hip arthroplasty. The visualized portion of the urinary bladder is unremarkable. The reproductive tract is unremarkable as imaged. The appendix is normal. There is a staple line associated with the distal sigmoid colon. There is very mild diverticulosis coli with no evidence of diverticulitis. There are a few loops of the proximal jejunum that are mild to moderately distended with air-fluid levels. It is nonspecific. There is nothing that would necessarily indicate obstruction. This probably represents mild ileus. The remainder of the GI tract is grossly unremarkable. No free abdominal gas, free fluid, or focal inflammatory changes are appreciated. There is degenerative arthropathy throughout the spine. There is moderate aortoiliac atherosclerotic calcification. IMPRESSION: 1.A few mild to moderately distended loops of the proximal jejunum that is nonspecific but probably represents ileus, which can be due to mild enteritis. 2.Hepatic steatosis. 3.Other incidental/nonacute findings detailed above. Electronically signed by Tanner Nascimento 11/14/2018 9:44 PM 11/14/[id number] Interpreting Physician: Tanner Nascimento MD Dictated Date/Time: 11/14/[id number]) - CONSULTS/PCP/HOSPITALIST Notification #1 *Consult/PCP/Hospitalist*: Dr. Jason Time Discussed: 12:50 Consult Disposition: Admit Departure - Departure Date of Disposition Decision: 11/15/18 Time of Disposition Decision: 12:53 DIAGNOSIS: Abdominal pain Qualifiers: Abdominal location: unspecified location Qualified Code(s): R10.9 - Unspecified abdominal pain Disposition: ADMITTED INPATIENT 09 Certified Medical Emergency: Emergent Condition: Fair - Critical Care Note This patient required my direct & personal management of CC.: No Attestation - Physician/ KELY Attestation The physician spent face to face time with patient:: Yes Advanced Practice Provider documentation review:: Supervising physician onsite and consulted in the evaluation and care of this patient. The physician did have a face to face encounter with the patient. This chart was documented by the indicated scribe, (Renu Tracey Scribe) and accurately reflects the services I performed and decisions made by me, Alex Tena MD, as attested by the provider's signature.
[2018-11-15] MEDS: OFIRMEV 1000 MG/ISOTONIC SOLN 1,000 MG/100 ML BOTTLE IV SCH ×2 (03:14→08:07)
[2018-11-15] MEDS ORDERED: SODIUM CHLORIDE 0.9% INJ SCH (03:15)
[2018-11-15] MEDS: PROTONIX IV SCH (03:45)
--- NOTE | 2018-11-15 04:15 | HISTORY AND PHYSICAL ---
ADDENDUM: This is a 58-year-old woman admitted complaining of 1-day history of abdominal pain. The patient is an extremely poor historian, did not give me any history as to the nature of the pain, whether there is any radiation or any other factors. All she keeps saying is, "I just hurt." The patient is crying in bed. The only other history she is able to give me is that she is sick to her stomach and feels like throwing up. She denies any fever or chills, however. Other than that, that was the extent of the history. The patient has had extensive endoscopic evaluation done less than 2 months ago and it showed gastritis and hemorrhoids. At that time a working diagnosis of gastroparesis was made. It is possible she may have gastroparesis. A CT scan showed small distended dilated small bowel loops of the jejunum proximally, so this is an ileus. We will consider doing CTA of the abdomen to rule out mesenteric ischemia. Other differentials like angioedema of the gut needs to be considered, although this is unlikely due to the fact that abdominal CT does show edema of her gut. That needs to also be considered. Porphyria also could be considered, although this is unlikely. I feel strongly this is a gastroparesis. Exam is essentially only notable for diffuse abdominal pain, but when I distract her and ask her questions, she does not appear to be in as much distress as when I am not examining and distracting her. Bowel sounds are hypoactive. No rebound, no guarding. No masses or organomegaly appreciated. cc: Soni Jason MD
--- NOTE | 2018-11-15 04:46 | HISTORY AND PHYSICAL ---
PRIMARY CARE PROVIDER: A physician in [place], [place]. CHIEF COMPLAINT: Abdominal pain. HISTORY OF PRESENT ILLNESS: Ms. Arias is a 58-year-old female who presented to the ER tonight with reports of intermittent abdominal pain that had been ongoing for quite a few months. She states that her abdominal pain has continued to bother her since she was discharged from the hospital in September, though she states that since last night, her abdominal pain has been constant. She reports that it is in her lower abdomen, the right and left quadrants. When she was asked to describe what the pain feels like, she stated that she cannot really describe it, "It just hurts." She has reported some nausea but denies any vomiting. She also has reported some episode of diarrhea since this morning. She states the diarrhea is yellow in color. She denied any hematochezia or melena. She denies any headache, chest pain or shortness of breath, though she had reported a dry, nonproductive cough that has been ongoing for a week or so. She denies any fever, body aches or chills. She denies any dysuria, urinary frequency. The patient during her admission in September did undergo colonoscopy and EGD with Dr. Canela. There were findings of a hiatal hernia, some mild antral gastritis as well as some internal hemorrhoids, though no other findings were noted. The patient was discharged with diagnosis of possible gastroparesis. She was discharged to follow up with her primary care physician and GI for discussion of her chronic nausea, intermittent diarrhea, and possible gastroparesis, though the patient states that at this time she has not followed up with Gastroenterology. Upon further evaluation in the ER, the patient did not have leukocytosis. She has not been febrile. Labs were pretty unremarkable. She did have some trace leukocytes noted in her urine, though the patient is asymptomatic. Given her reports of abdominal pain, we did perform a CT abdomen and pelvis with IV contrast, which did show a few mild to moderately distended loops of proximal jejunum that is nonspecific but probably represents an ileus, which can be due to mild enteritis. There was also hepatic steatosis noted. There were other nonacute findings. Please see CT report. For further evaluation, this patient will be admitted inpatient. REVIEW OF SYSTEMS: A 14-point review of systems was conducted with the patient and all were negative except for pertinent positives mentioned above in HPI. PAST MEDICAL HISTORY: 1. COPD. 2. Chronic hypoxic respiratory failure. 3. Chronic kidney disease. 4. Diabetes mellitus type 2. 5. Atrial fibrillation. 6. Hypertension. 7. Nicotine dependency. 8. Gastroesophageal reflux disease. 9. Chronic abdominal pain. 10.Bipolar disorder. 11.Depression. 12.Anxiety. 13.Reported history of congestive heart failure. PAST SURGICAL HISTORY: 1. Hip surgery. 2. Low back surgery for pinched nerve. 3. Right chest Port-A-Cath placement. 4. Right shoulder surgery. 5. . 6. Cholecystectomy. SOCIAL HISTORY: The patient is currently smoking, has a pack of cigarettes a day and has done so for 40 years. She denies any vaping use at this time. The patient reports very rare alcohol use. She denies any illicit drug use. FAMILY HISTORY: Positive for her father passing away in his 40s secondary to an infection and gangrene. Her mother is alive and does have a history of Parkinson's disease and is in a [facility] in [place]. ALLERGIES: The patient has no known allergies. HOME MEDICATIONS: We are awaiting the patient's home medication list to be updated and verified. Once done so, we will address her home medicines. DIAGNOSTIC DATA/LABORATORY RESULTS: White blood cell count 9960, hemoglobin 14.6, hematocrit 45, platelet count 263. PT 12.8, INR 0.89, PTT 25.9. Sodium 137, potassium 4.2, chloride 99, bicarbonate 23, BUN 9, creatinine 0.9 with a GFR greater than 60, glucose 187, calcium 9, magnesium 1.5. Liver function tests within normal limits except for alkaline phosphatase elevated at 120. POC lactate is 1.6. Lipase is 21. Urinalysis was obtained via clean catch and was positive for protein, ketones and trace leukocytes and was negative for glucose, blood, nitrites, white blood cells or bacteria. EKG showed normal sinus rhythm at a rate of 98 with a QTC of 477. CT abdomen and pelvis showed a few mildly to moderately distended loops of proximal jejunum that are nonspecific but probably represents an ileus, which can be due to mild enteritis. There was also hepatic steatosis noted. There were other incidental nonacute findings. Please see full CT report. PHYSICAL EXAMINATION: VITAL SIGNS: We are awaiting more recent vital signs to be updated at this time, though last vital signs documented for this patient at 1900 on 11/14/2018 showed a heart rate of 95, respiratory rate of 18, blood pressure 176/52 with an oxygen saturation of 98% on room air. GENERAL: Ms. Arias is a 58-year-old female. She was resting on the ER stretcher. She was in no acute distress. She was awake, alert and able to answer questions appropriately. HEENT: Head is atraumatic, normocephalic. Pupils are equal, round, reactive to light, were 3 mm bilaterally and brisk. Oral mucosa is slightly dry. Oropharynx is clear. NECK: Supple, trachea midline. CARDIOVASCULAR: The patient has normal S1 and S2, no murmurs, gallops, or rubs appreciated, with a regular rate and rhythm. PULMONARY: The patient has symmetrical chest expansion bilaterally. Lung sounds were clear to auscultation in bilateral full gaytan. The patient did have what appeared to be a slight crackle in her left lung base. ABDOMEN: Soft, maybe appears to be mildly distended though the patient had a protuberant abdomen noted. Bowel sounds are present in all 4 quadrants and were normoactive. The patient did report some tenderness upon palpation in the right and left lower quadrants, though there was no rebound tenderness noted. INTEGUMENTARY: The patient's skin color is pink, warm and dry. EXTREMITIES: No cyanosis, clubbing, or edema noted. Pulse, motor, and sensory were intact in all extremities. Radial pulses and pedal pulses were 2+ bilaterally. NEUROLOGICAL: The patient is alert and oriented to person, place, time, and situation. There do not appear to be any focal neurological deficits noted at this time. ASSESSMENT AND PLAN: 1. Possible ileus. As previously mentioned, the patient's CT did note a few mild to moderately distended loops of the proximal jejunum that is nonspecific but probably represents ileus, which could be due to mild enteritis. We have placed the patient NPO. We will provide IV fluid hydration. We will provide p.r.n. medicines for nausea. We will place her on IV Protonix as well. The patient has been noted to have possible gastroparesis. Given this, we will try to limit certain pain medication usage. We have ordered her morphine, though have reduced the dose in frequency and have provided IV acetaminophen as well. We have placed a consult with Gastroenterology and will await their evaluation and further recommendations for management. 2. Intractable abdominal pain. The patient has been having this abdominal pain intermittently for quite a few months. Given this, we will consider possibly performing a CT angiogram alert and oriented to rule out any further possible vascular involvement, though this will have to be done 24 hours from now, given that the patient has already received IV contrast. 3. Diarrhea. The patient has been having intermittent diarrhea. The last time she was here, they did perform a complete evaluation with stool studies which were negative. The patient only reported that she had been having a few episodes of diarrhea since this morning. At this time, we will hold off on ordering any repeat stool studies at this time until she is evaluated by Gastroenterology. 4. Diabetes mellitus type 2. The patient will be NPO at this time and will not be able to receive certain oral diabetic medications such as metformin, which it looks as though she previously used to take. We are awaiting her home medication list to be verified. Given this, we have placed her on insulin Lispro per patient-specific sliding scale. We will do fingerstick blood sugars. 5. History of atrial fibrillation. The patient at this time is in normal sinus rhythm. Her rate is controlled. We are awaiting her home medication list to be verified. Once done so, we will continue her regularly prescribed rate control medications. 6. Hypertension. Once we have verified her home medications, we will continue her regularly prescribed antihypertensive medications. 7. Chronic obstructive pulmonary disease. We have placed p.r.n. orders for DuoNeb treatments as needed. 8. History of anxiety, bipolar disorder and depression. As previously mentioned, we are awaiting verification of home medications and once done so, we will continue her medications for these diagnoses. The patient denies having any history of suicidal thoughts or attempts or homicidal thoughts. She also denied any suicidal or homicidal thoughts at this present time. 9. DVT prophylaxis will be provided with sequential compression devices. The patient has been on the medical floor with telemetry. She will have vital signs q. 8 hours. We will do strict intake and output. She will be NPO. We will repeat a CBC and BMP in the morning and will add hemoglobin A1C. We are awaiting a chest x-ray as the patient had reported a cough and did have a slight crackle in the left lung base. We are awaiting the results and will continue to follow. Also, the patient did have some leukocytes noted in her urine, though the patient is asymptomatic. We are awaiting a urine culture report as well. Further orders and recommendations pending hospital course, diagnostic studies and physician evaluations. Dictated by MARY KAY Hernandez for Soni Jason MD cc: Soni Jason MD
[2018-11-15] MEDS: MORPHINE IV PRN ×4 (05:57→20:44)
[2018-11-15] MEDS: ZOFRAN IV PRN ×3 (05:58→14:48)
--- NOTE | 2018-11-15 07:56 | Diag Imaging Result Doc PS360 ---
EXAM: CHEST-PORTABLE INDICATION: cough TECHNIQUE: One view COMPARISON: 10/06/2018 FINDINGS: The right chest port is in stable position. There is mild linear opacity at the right lower lung zone most likely representing atelectasis. Otherwise, the lungs are grossly clear. There is no discrete pleural fluid collection or pneumothorax. The cardiomediastinal silhouette and central vasculature are grossly unremarkable. IMPRESSION: Mild right lower lung zone atelectasis. Otherwise, no definite acute pathology by plain radiograph. Electronically signed by Tanner Nascimento 11/15/2018 7:53 AM
[2018-11-15] MEDS: NS 1,000 ML IV SCH ×2 (08:06→20:00)
[2018-11-15 08:16] LABS: BASO# 0.04 X1000 (0.0-0.2); BASO% 0.5 % (0.0-0.8); EOS# 0.12 X1000 (0.0-0.7); EOS% 1.5 % (0.0-10.0); HEMATOCRIT 44.4 % (37.0-47.0); HEMOGLOBIN 14.1 g/dL (12.0-16.0); IMM GRAN# 0.02 X1000 (0.0-0.04); IMM GRAN% 0.2 % (0.0-0.5); LYMPH# 1.74 X1000 (1.2-3.4); LYMPH% 21.7 % (20.5-51.1); MCH 29.7 PG (27-31); MCHC 31.8 g/dL (33-37); MCV 93.7 FL (81-99); MONO# 0.79 X1000 (0.11-0.59); MONO% 9.8 % (1.7-9.3); MPV 11.1 FL (7.4-10.4); NEUT# 5.32 X1000 (1.4-6.5); NEUT% 66.3 % (42.2-75.2); PLT 269 X1000 (130-400); RBC 4.74 XMIL (4.2-5.4); RDW 15.9 % (11.5-14.5); WBC 8.03 X1000 (4.8-10.8)
--- NOTE | 2018-11-15 08:19 | EKG Report ---
Test Performed on : 11/14/2018 8:30:10 PM Test Reason : tachycardia Blood Pressure : / mmHG Vent. Rate : 098 BPM Atrial Rate : 098 BPM P-R Int : 148 ms QRS Dur : 080 ms QT Int : 374 ms P-R-T Axes : 089 004 044 degrees QTc Int : 477 ms Normal sinus rhythm. Anterior infarct (cited on or before 21-JUL-2017) Abnormal ECG When compared with ECG of 05-OCT-2018 13:31, (Unconfirmed) premature atrial complexes. are no longer present Unconfirmed Result
[2018-11-15 08:30] LABS: HEMOGLOBIN A1C 9.3 % (4.8-6.0)
[2018-11-15 08:48] LABS: AGAP 15; BUN 8 mg/dL (8-22); CALCIUM 9.2 mg/dL (8.8-10.2); CHLORIDE 97 mmol/L (98-107); COSMO 275; CREATININE 0.8 mg/dL (0.5-0.9); ESTIMATED GFR > 60; GLUCOSE 217 mg/dL (70-104); POTASSIUM 4.2 mmol/L (3.5-5.1); SODIUM 135 mmol/L (136-145); TCO2 23 mmol/L (25-35)
[2018-11-15] MEDS: HUMALOG SUBQ SCH ×3 (14:49→20:44)
--- NOTE | 2018-11-15 21:10 | GASTROENTEROLOGY CONSULTATION ---
DATE: 11/15/2018 REASON OF CONSULTATION: Abdominal pain HPI: Ms. Chris Arias is a 58 year old woman with HTN, HLD, CKD2, COPD, NIDDM2, pAFIB, BPD, GERD and chronic abdominal pain who presents acute on chronic abdominal pain and diarrhea. The patient reports having multiple episodes of non-bloody diarrhea with associated achy lower abdominal pain. She reports associated nausea without vomiting. No fever, CP, SOB. No recent antibiotics, changes in medications, sick contacts, recent travel, or changes in diet. She reports multiple similar episodes in the past that improved with antibiotics, pain and nausea medications. Patient had EGD/colonoscopy in 09/2016 that showed hiatal hernia and internal hemorrhoids. REVIEW OF SYSTEMS: A 14-point review of systems was conducted with the patient and all were negative except for pertinent positives mentioned above in HPI. PAST MEDICAL HISTORY: 1. COPD. 2. Hyperlipidemia 3. Chronic kidney disease. 4. Diabetes mellitus type 2. 5. Atrial fibrillation. 6. Hypertension. 7. Nicotine dependency. 8. Gastroesophageal reflux disease. 9. Chronic abdominal pain. 10.Bipolar disorder. 11.Depression. 12. Anxiety. 13. Hiatal hernia 14. Internal hemorrhoids PAST SURGICAL HISTORY: 1. Hip surgery. 2. Low back surgery for pinched nerve. 3. Right chest Port-A-Cath placement. 4. Right shoulder surgery. 5. x 5. 6. Cholecystectomy. 7. Partial colectomy SOCIAL HISTORY: 1ppd smoker x 40 years. Rare ETOH. No drugs. FAMILY HISTORY: No FHx of GI malignancies ALLERGIES: The patient has no known allergies. HOME MEDICATIONS: reviewed in chart DIAGNOSTIC DATA/LABORATORY RESULTS: White blood cell count 9960, hemoglobin 14.6, hematocrit 45, platelet count 263. PT 12.8, INR 0.89, PTT 25.9. Sodium 137, potassium 4.2, chloride 99, bicarbonate 23, BUN 9, creatinine 0.9 with a GFR greater than 60, glucose 187, calcium 9, magnesium 1.5. Liver function tests within normal limits except for alkaline phosphatase elevated at 120. POC lactate is 1.6. Lipase is 21. Urinalysis was obtained via clean catch and was positive for protein, ketones and trace leukocytes and was negative for glucose, blood, nitrites, white blood cells or bacteria. [facility] 11/2018 IMPRESSION: 1. A few mild to moderately distended loops of the proximal jejunum that is nonspecific but probably represents ileus, which can be due to mild enteritis. 2. Hepatic steatosis. 3. Other incidental/nonacute findings detailed above. PHYSICAL EXAMINATION: VS T 98.1 RR 22 BP 177/44 O2 sat 94% RA GEN: awake, alert, NAD HEENT: anicteric, MMM, EOMI NECK: supple, no jvd CV: RRR, no murmurs PULM: CTAB, no wheezing ABD: scar, ND, mild TTP lower abdomen, BS present, no rebound or guarding EXT: no cce NEURO: nonfocal ASSESSMENT AND PLAN: Ms. Chris Arias is a 58 year old woman with HTN, HLD, CKD2, COPD, NIDDM2, pAFIB, BPD, GERD and chronic abdominal pain who presents acute on chronic abdominal pain and diarrhea. CT A/P shows possible ileus vs mild enteritis. No pancreatitis. Labs unrevealing. WBC WNL. Patient had EGD/colonoscopy in 2017 that was essentially unremarkable. Hgb WNL. No red flags # Acute on chronic abdominal pain: suspect infectious etiology ie viral gastroenteritis; check stool studies; clear liquid diet, continue IVFs; advance diet as tolerated; analgesics prn # NIDDM2: SSI # Nausea: antiemetics prn # GNR on UC: defer mgmt to primary team Will follow with you. Please call with questions MACIED
[2018-11-16] MEDS: PROTONIX IV SCH (02:33)
[2018-11-16] MEDS: HUMALOG SUBQ SCH ×4 (06:26→22:20)
[2018-11-16] MEDS: MORPHINE IV PRN ×3 (07:40→18:06)
[2018-11-16] MEDS: ZOFRAN IV PRN ×3 (08:39→18:06)
[2018-11-16] MEDS: DUONEB (A & A) INH PRN ×3 (09:38→20:35)
[2018-11-16] MEDS ORDERED: NS 500 ML IV ONE (10:21)
[2018-11-16] MEDS: NS 1,000 ML IV SCH (10:49)
--- NOTE | 2018-11-16 11:11 | PROGRESS NOTE ---
DATE: 11/16/2018 SUBJECTIVE: The patient reports worsening abdominal pain in the epigastric and mesogastric area. Denies any fever, chills. Mildly nauseated. OBJECTIVE: Vital Signs: Temperature 98.6 degrees, heart rate 100, respiratory rate 18, blood pressure 164/73, O2 saturation 97% on 2 L nasal cannula. General: This is a chronically ill- appearing 58-year-old female, lying in bed, in no acute distress. HEENT: Head is normocephalic, atraumatic. Neck: No JVD noted. No carotid bruit. Cardiovascular: S1, S2 heard. No murmurs, gallops, or rubs. Regular rate and rhythm. Respiratory: Clear bilaterally to auscultation. The patient is not having work of breathing or using any accessory muscles. Abdomen: Soft. A little bit distended, but not really tender to palpation. Bowel sounds present. No organomegaly noted. Extremities: No clubbing, cyanosis, or edema. Peripheral pulses present in both legs. Neurological: Patient is alert and oriented x3. Moves 4 extremities. LABORATORY DATA: Reviewed. ASSESSMENT AND PLAN: 1. Abdominal pain. We were suspecting initially at admission ileus, but also at this point, considering his benign physical exam, I think this patient also may have some abdominal ischemia. In that regard, I will order a CTA of abdomen and see there are any blockages. We will continue to monitor this patient. 2. Diarrhea, resolved. 3. Diabetes mellitus, type 2. We will continue with sliding scale insulin and Accu-Chek before meals and also at bedtime. 4. History of atrial fibrillation. Patient is in sinus rhythm now. 5. Chronic obstructive pulmonary disease (COPD). Patient is receiving p.r.n. breathing treatments. 6. History of anxiety and bipolar disorder. Patient is on home medications. DISPOSITION: Depending upon results of CTA of abdomen. cc: Mark Ivy MD
--- NOTE | 2018-11-16 12:37 | GASTROENTEROLOGY CONSULTATION ---
DATE: 11/16/2018 SUBJECTIVE: Patient resting in bed. She complained of abdominal pain. She complains of nausea. She denies any vomiting. She is requesting pain medication. She has not had a bowel movement per the records. PHYSICAL EXAMINATION: Vital Signs: Temperature 98.6 degrees, pulse of 96, respiratory rate 14, blood pressure 164/72, saturating 94% on 2 L nasal cannula, body weight of 215 pounds, BMI of 38.1 kg/m2. General Appearance: Obese, lying in bed, in mild distress with abdominal pain. HEENT: No pallor. No icterus. Pupils equal, reactive to light. Neck: Supple. Abdomen: Distended. Tympanic to percussion. Discomfort in the periumbilical region. No rebound or guarding. Extremities: No cyanosis, clubbing. Neurologic: She is alert, awake, oriented. LABS: Her blood glucose was 178 yesterday. Her hemoglobin is 14.1, hematocrit was 44.4, white count of 8.03, platelet count of 269,000. Her sodium 139, potassium 4.2, chloride 97, bicarb 23, anion gap 15, BUN of 3, creatinine 0.8, glucose of 180, calcium 9.2. Hemoglobin A1c 9.3. Her urine culture showing Escherichia coli. Her abdominal CT scan was done on admission which showed staple line associated in the distal sigmoid colon. There is mild diverticulosis coli with no evidence of diverticulitis. There are a few loops of proximal jejunum that are mild to moderately distended with air fluid levels. This is nonspecific. This probably represents mild ileus. There is degenerative arthropathy throughout the spine. There is moderate aortoiliac atherosclerotic calcification. Hepatic steatosis noted and prior cholecystectomy noted. IMPRESSION/PLAN: 1. Abdominal pain in the pelvic region. 2. Mild abdominal distention likely ileus. 3. Constipation. No bowel movement since admission. 4. Diverticulosis. 5. History of colon resection in the distal sigmoid. 6. Hepatic steatosis. 7. Diabetes. 8. Nausea. 9. Urinary tract infection. RECOMMENDATIONS: 1. We will continue on IV pain control and will continue IV fluids. Put on IV PPIs once daily. Put on IV antiemetics. She will continue on sliding-scale Humalog. 2. Will give her Dulcolax suppository and MiraLAX by mouth twice daily. 3. We will order a CTA to evaluate for mesenteric ischemia as patient has evidence of aortoiliac calcification and she is a chronic smoker. This was discussed with the patient and the hospitalist team. I spoke with Dr. Bourgeois. 4. She will continue on clear liquid diet for now. 5. We will follow up on the stool studies. 6. She will need serial abdominal exams. 7. The patient counseled to quit smoking completely. 8. Further recommendations per hospital course and Dr. Bourgeois. cc: Brice Patel MD
[2018-11-16] MEDS: DULCOLAX PR SCH ×2 (13:01→22:21)
[2018-11-16] MEDS: MIRALAX PO SCH ×2 (13:01→22:22)
--- NOTE | 2018-11-16 13:32 | Diag Imaging Result Doc PS360 ---
CT ANGIOGRAM ABDOMEN - 11/16/2018 INDICATION: suspecting mesenteric ischemia TECHNIQUE: Axial CT images were obtained after administering intravenous contrast. Coronal MIP images were generated. COMPARISON: 11/14/2018 FINDINGS: The celiac, superior and inferior mesenteric artery are slightly diseased but all patent. No aneurysm or significant stenosis. The renal arteries are also somewhat diseased but patent without stenosis. There is one left and two right renal arteries. There is heavy vascular disease of the iliac artery systems without severe stenosis. Other findings are unchanged from prior. IMPRESSION: Moderate vascular disease but no significant stenosis of the mesenteric arteries or other abdominal branches. This exam was performed using automated exposure control, adjustment of mA or kV according to patient size, and/or use of iterative reconstruction technique Electronically signed by Parth Lorenz 11/16/2018 1:29 PM
[2018-11-17] MEDS: PROTONIX IV SCH (03:25)
[2018-11-17] MEDS: HUMALOG SUBQ SCH ×2 (06:38→10:51)
[2018-11-17 07:48] VITALS: BP 167/94
[2018-11-17 08:45] LABS: HEMATOCRIT 45.7 % (37.0-47.0); HEMOGLOBIN 14.4 g/dL (12.0-16.0); MCH 29.8 PG (27-31); MCHC 31.5 g/dL (33-37); MCV 94.4 FL (81-99); MPV 10.9 FL (7.4-10.4); RBC 4.84 XMIL (4.2-5.4); RDW 15.7 % (11.5-14.5); WBC 8.77 X1000 (4.8-10.8)
[2018-11-17] MEDS: DULCOLAX PR SCH (09:38)
[2018-11-17] MEDS: MIRALAX PO SCH (09:38)
[2018-11-17] MEDS: NS 1,000 ML IV SCH (09:39)
[2018-11-17 10:15] LABS: AGAP 18; ALBUMIN 4.1 g/dL (3.5-5.0); ALKALINE PHOSPHATASE 108 U/L (32-104); BUN 5 mg/dL (8-22); CALCIUM 8.3 mg/dL (8.8-10.2); CHLORIDE 99 mmol/L (98-107); COSMO 268; CREATININE 0.7 mg/dL (0.5-0.9); ESTIMATED GFR > 60; GLUCOSE 186 mg/dL (70-104); GOT 44 U/L (10-30); GPT 20 U/L (10-36); POTASSIUM 4.3 mmol/L (3.5-5.1); SODIUM 133 mmol/L (136-145); TCO2 16 mmol/L (25-35); TOTAL PROTEIN 6.1 g/dL (6.3-8.3)
--- NOTE | 2018-11-17 10:55 | PROVIDER PROGRESS NOTE ---
Progress Note SUBJECTIVE: No acute overnight events. Patient reports improvement in abdominal pain. No N/V/F, CP, SOB OBJECTIVE Last Vital Signs Temp 98.4 F 11/17/18 07:47 Pulse 97 H 11/17/18 07:47 Resp 20 11/17/18 07:47 BP 167/94 11/17/18 07:47 Pulse Ox 92 L 11/17/18 07:47 Height 5 ft 3 in Weight 215 lb GEN: awake, alert, NAD HEENT: anicteric, MMM NECK: supple, no jvd CV: RRR, no murmurs PULM: CTAB no wheezing ABD: NT/ND, NABS EXT: no cce NEURO: nonfocal, ambulatory LABS: 11/17/18 11/17/18 11/17/18 08:22 08:22 08:22 WBC 8.77 Hgb 14.4 Plt Count 261 Sodium 133 L Potassium 4.3 Chloride 99 Carbon Dioxide 16 L BUN 5 L Creatinine 0.7 Glucose 186 H Total Bilirubin 0.50 AST 44 H ALT 20 Alkaline Phosphatase 108 H Total Protein 6.1 L Plasma Lactate 0.7 CT ANGIOGRAM ABDOMEN - 11/16/2018 INDICATION: suspecting mesenteric ischemia TECHNIQUE: Axial CT images were obtained after administering intravenous contrast. Coronal MIPimages were generated. COMPARISON: 11/14/2018 FINDINGS: The celiac, superior and inferior mesenteric artery are slightly diseased but all patent. No aneurysm or significant stenosis. The renal arteries are also somewhat diseased but patent without stenosis. There is one left and two right renal arteries. There is heavy vascular disease of the iliac artery systems without severe stenosis. Other findings are unchanged from prior. IMPRESSION: Moderate vascular disease but no significant stenosis of the mesenteric arteries or other abdominal branches. This exam was performed using automated exposure control, adjustment of mA or kV according to patient size, and/or use of iterative reconstruction technique A/P: Ms. Chris Arias is a 58 year old woman with HTN, HLD, CKD2, COPD, NIDDM2, pAFIB, BPD, GERD and chronic abdominal pain who presents acute on chronic abdominal pain and diarrhea. CT A/P shows possible ileus vs mild enteritis. No pancreatitis. Labs unrevealing. WBC WNL. Patient had EGD/colonoscopy in 2017 that was essentially unremarkable. Hgb WNL. Lactate WNL. Cdiff negative. No red flags # Acute on chronic abdominal pain: suspect infectious etiology ie viral gastroenteritis: advance to diabetic diet # Diarrhea: improving; imodium as needed for diarrhea # NIDDM2: SSI # Nausea: antiemetics prn # GNR on UC: defer mgmt to primary team # Low bicarb: likely from GI losses Will follow with you. Please call with questions
--- NOTE | 2018-11-17 18:02 | DISCHARGE SUMMARY ---
ADMISSION DATE: 11/15/2018 DISCHARGE DATE: 11/17/2018 DISCHARGE DIAGNOSES: 1. Abdominal pain, resolved. 2. Possible ileus, resolved. 3. Acute diarrhea, resolved. 4. Diabetes mellitus type 2. 5. Atrial fibrillation. 6. Hypertension. 7. Chronic obstructive pulmonary disease, not in any exacerbation. 8. Anxiety disorder/bipolar disorder. CONSULTATIONS: Dr. Dylan Lee from Gastroenterology. PROCEDURES: 1. Abdomen CT showed (1) a few mild to moderately distended loops of the proximal jejunum that is nonspecific but probably represents ileus and also can be mild enteritis; (2) hepatic steatosis. 2. Chest x-ray which basically showed mild right lower lung zone atelectasis, but no definite acute pathology. 3. Abdominal arteriogram showed moderate vascular disease but no significant stenosis of the mesenteric arteries or other abdominal branches. HISTORY OF PRESENT ILLNESS: This is a 58-year-old female who presented to the ER complaining of intermittent abdominal pain that had been ongoing for a few months. She has been admitted here in September. She has been evaluated by GI, and endoscopy and colonoscopy have been performed but not conclusive. She came to the emergency department with that complaint. HOSPITAL COURSE: She was admitted to the hospital, placed on IV fluids and really tiny doses of pain medications, considering that we did not know what is the reason why this patient was hurting. GI was consulted again. Because the patient has history of coronary artery disease and considering that she may have blockages in the abdominal arteries, we decided to do a CTA of the abdomen, which basically did show some vascular compromise of those arteries but not really an obstruction that can explain why this patient is hurting. On the day of discharge the patient was reporting feeling fine, no abdominal pain, so she thinks that she can go home. She is advised to call her primary GI office in case the patient started to get worse again. At this point the patient is stable, and she is going to be discharged in stable condition. DISCHARGE PHYSICAL EXAMINATION: Vital signs: Temperature 98.4 degrees, heart rate 97, respiratory rate 20, blood pressure 167/94, O2 saturation 92% on room air. On general examination, this is a chronically ill-looking 58-year-old female lying in bed, in no acute distress. Cardiovascular exam: S1, S2 heard. No murmurs, gallops or rubs. Regular rate and rhythm. Respiratory exam: Clear bilaterally to auscultation. No work of breathing or use of accessory muscles. Abdomen is soft, nontender to palpation. Bowel sounds present. No organomegaly. Extremities: No clubbing, cyanosis or edema. Peripheral pulses present in both legs. Neurological exam: The patient is alert and oriented x3. Moves all 4 extremities. DISCHARGE DISPOSITION: Home to self-care. DISCHARGE MEDICATIONS: We have not made any changes to her current medications. cc: Mark Ivy MD
== END 2018-11-17 13:00 | disposition home or self-care (01) | DRG 389 ==
LOC: SUPCPDRO → ED 18:27 → EDIPHOLD 11-15 03:04 → SUATTDRO 11-15 03:04 → 4N 11-15 06:17
PROVIDERS: ATTEND Internal Medicine
CPT/HCPCS: 71010; 71045; 74175; 74177; 80048; 80053; 81001; 82948; 83036; 83605; 83690; 83735; 85025; 85027; 85610; 85730; 87077; 87088; 87186; 93005; 94640; 94761; 96361; 96365; 96375; 96376; 99285; A9270; C9113; J0131; J0780; J2270; J2405; J7030; J7040; Q9967; S0164; XXXXX